=== PATIENT | male | born 1950 | race Caucasian/White ===

== ENCOUNTER 2023-08-16 06:17 | Inpatient (IN) | payer OTHER, MEDICARE, SELFPAY ==
--- NOTE | 2023-07-19 08:53 | CM ---
Patient is scheduled for L hip TKR on 09/12/22. Spoke with patient prior to surgery via telephone. Introduced role of Orthopedic Navigator. Patient reports that he lives with his and two young children (ages 5 and 10) in a two story home. There
are three steps to enter and a flight of steps to the second floor. He currently functions independently and uses a cane. He has no other DME and has never had VN services. PCP is Jenni Duenas.
Discussed orthopedic program and post surgical plans. Reviewed anticipated length of stay and that goal is for him to return home at discharge. Also reviewed outpatient PT. Patient is in agreement with tentative plan and will go directly to
outpatient PT at [facility]. He will have support from his and children's ocean lifeguard specialist when he goes home.
Patient will complete online education.
Plan: Orthopedic Navigator will remain available to assist with the care of patient and will reassess discharge needs after surgery.
[2023-07-27 08:30] VITALS: BMI 26.9
[2023-07-27 08:55] LABS: Hematocrit 46.2 % (39.0-52.0); Hemoglobin 15.3 g/dL (13.0-18.0); Mean Corp Hgb Conc. 33.1 g/dL (33.0-37.0); Mean Corpuscular Hgb 26.7 pg (27.0-31.0); Mean Corpuscular Volume 80.6 fL (80.0-94.0); Mean Platelet Volume 9.2 fL (7.4-10.4); Platelet Count 219 10^3/uL (130-400); Red Blood Cell Count 5.73 10^6/uL (4.70-6.10); Red Cell Dist. Width 15.9 % (11.5-14.5); White Blood Cell Count 6.3 10^3/uL (4.8-10.8)
[2023-07-27 09:08] LABS: ALT (SGPT) 26 U/L (0-50); AST (SGOT) 32 U/L (17-59); Alkaline Phosphatase 63 U/L (38-126); Blood Urea Nitrogen 19 mg/dl (9-20); Calcium 9.3 mg/dl (8.4-10.2); Carbon Dioxide 31 mmol/L (22-30); Chloride 101 mmol/L (98-107); Estimated Creatinine Clearance 72 ml/min; Glucose 67 mg/dl (70-99); Potassium 3.7 mmol/L (3.5-5.1); Sodium 134 mmol/L (135-145); Total Bilirubin 1.1 mg/dl (0.2-1.3); Total Protein 6.5 g/dl (6.3-8.2); eGFR > 60.00
[2023-07-27 10:37] LABS: Glycohemoglobin (HgbA1c) 5.5 % (4.0-5.6)
--- NOTE | 2023-07-27 16:17 | PTCARENOTE ---
Abnormal EKG, reviewed by Dr. Noble, no further actions requested.
[2023-07-27 16:20] VITALS: BMI 26.9
--- NOTE | 2023-07-31 12:44 | CM ---
Patient is scheduled for L hip TKR on 08/16/23. Spoke with patient prior to surgery via telephone. Introduced role of Orthopedic Navigator. Patient reports that he lives with his and two young children (ages 5 and 10) in a two story home. There
are three steps to enter and a flight of steps to the second floor. He currently functions independently and uses a cane. He has no other DME and has never had VN services. PCP is Jenni Duenas.
Discussed orthopedic program and post surgical plans. Reviewed anticipated length of stay and that goal is for him to return home at discharge. Also reviewed outpatient PT. Patient is in agreement with tentative plan and will go directly to
outpatient PT at [facility]. He will have support from his and children's engineering specialist when he goes home.
Patient will complete online education.
Plan: Orthopedic Navigator will remain available to assist with the care of patient and will reassess discharge needs after surgery.
[2023-08-16] VITALS (16 sets, daily range): BP systolic 112–129; BP diastolic 60–80
[2023-08-16 08:45] LABS: Glucose - Point of Care 71 mg/dl (70-99)
[2023-08-16] MEDS: NORMOSOL-R 1000 IV ×2 (08:45→14:00)
[2023-08-16] MEDS: CELEBREX 200 MG PO (08:59)
[2023-08-16] MEDS: TYLENOL 650 MG PO ×3 (09:00→19:35)
[2023-08-16 10:53] LABS: Glucose - Point of Care 98 mg/dl (70-99)
[2023-08-16 13:15] LABS: Glucose - Point of Care 102 mg/dl (70-99)
[2023-08-16] MEDS: ROXICODONE 5 MG PO (14:00)
--- NOTE | 2023-08-16 15:10 | W.PN.ORTHO ---
Today's Communication / Plan
-
D/c when clinically stable.
Assessment
.
Distal Motor Intact: Yes
Dressing:
Clean, dry and intact.
Assessment:
L hip OA s/p Conversion to L JULIANE w/ Dr Reid 08/16/23
- Left slipped capital femoral epiphysis, status post childhood correction with pinning
DVT prophylaxis - ASA, b/l venous foot pumps
HTN - + parameters - monitor BP
Asthma, mild and intermittent, and SHANTANU per sleep study 02/2023; no current CPAP or BiPAP - monitor O2
- IS
- Add supplemental O2 HS
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
BPH with LUTS, status post PlasmaButton vaporization, and h/o post-surgical urinary retention - monitor voids
- Bladder scan and straight cath prn
- Started on Flomax HS 3 days pre-op; continue post-op x1 week
Hyperlipidemia
Atypical chest pain; nuclear stress test 2019 unremarkable
Remote rectal bleeding
Right renal cyst
Vertigo
Kalia's thyroiditis
Basal cell carcinoma, left shoulder, status post excision
PTSD
Depression
Anxiety
Insomnia
Mild hyponatremia.
COVID-2021, without residual deficits
Remote history of tobacco abuse
Remote history of substance abuse
Plan
.
Surgery / Date: Conversion to L JULIANE w/ Dr Reid 08/16/23
DVT Prophylaxis: Aspirin
Activity:
Out of bed.
PT/OT
Discharge Plan: Home w/ Outpatient PT
Subjective
.
.:
Patient resting comfortably in PACU.
L hip pain currently well tolerated.
Denies any new significant complaints.
Vital Signs and Labs
.
Vital Signs and Labs:
Lab Results
07/27/23 07:01
07/27/23 07:01
Temp Pulse Resp BP Pulse Ox
97.9 F 80 13 112/74 99
08/16/23 13:09 08/16/23 13:15 08/16/23 13:15 08/16/23 13:15 08/16/23 13:15
Physical Exam
-
HEENT: No pallor, cyanosis, or jaundice. Throat clear.
NECK: Supple. No JVD.
RESPIRATORY: Lungs clear to auscultation.
CVS: S1, S2 normal. RRR.�
ABDOMEN: Soft, non-tender. No distension.
EXTREMITIES: No calf pain with palpation/dorsiflexion. Calves soft.
HEEL BUFFER: AOx3. No focal deficits. appraisal analyst grossly intact
[2023-08-16] MEDS: GLUCOPHAGE 500 MG PO (16:34)
[2023-08-16] MEDS: VITAMIN D3 (cholecalciferol) 25 MCG PO (16:34)
[2023-08-16] MEDS: SYNTHROID 75 MCG PO (16:34)
[2023-08-16] MEDS: VITAMIN C 500 MG PO (16:34)
[2023-08-16] MEDS: ORETIC 12.5 MG PO (16:35)
[2023-08-16] MEDS: DIOVAN 160 MG PO (16:35)
[2023-08-16] MEDS: ASPIRIN 325 MG PO (17:15)
[2023-08-16] MEDS: ANCEF 5 IV (19:34)
[2023-08-16] MEDS: DECADRON 4 MG PO (19:35)
[2023-08-16] MEDS: COLACE 100 MG PO (19:35)
[2023-08-16] MEDS: BACTROBAN 2% OINTMENT 1 APPLIC NASAL (19:35)
[2023-08-16] MEDS: SENOKOT 17.1999999999999993 MG PO (19:35)
[2023-08-16] MEDS: ROXICODONE 10 MG PO (19:36)
[2023-08-16] MEDS: FLOMAX 0.400000000000000022 MG PO (21:58)
[2023-08-16] MEDS: LEXAPRO 2.5 MG PO (21:58)
[2023-08-16] MEDS: DIOVAN PO (21:58)
[2023-08-16] MEDS: AMBIEN 2.5 MG PO (21:59)
[2023-08-17] VITALS (7 sets, daily range): BP systolic 107–136; BP diastolic 53–75; PULSE 70–79; O2SAT 97
[2023-08-17] MEDS: TYLENOL PO (01:00)
[2023-08-17] MEDS: ANCEF 5 IV (04:07)
[2023-08-17] MEDS: TYLENOL 650 MG PO ×5 (04:08→20:05)
[2023-08-17 05:14] LABS: Glucose - Point of Care 130 mg/dl (70-99)
[2023-08-17] MEDS: SYNTHROID 75 MCG PO (06:24)
[2023-08-17] MEDS: ROXICODONE 5 MG PO ×3 (06:29→20:05)
[2023-08-17] MEDS: COLACE 100 MG PO ×2 (08:23→20:05)
[2023-08-17] MEDS: DECADRON 4 MG PO ×2 (08:23→20:07)
[2023-08-17] MEDS: BACTROBAN 2% OINTMENT 1 APPLIC NASAL ×2 (08:24→20:07)
[2023-08-17] MEDS: SENOKOT 17.1999999999999993 MG PO ×2 (08:24→20:05)
[2023-08-17] MEDS: ASPIRIN 325 MG PO (08:24)
[2023-08-17] MEDS: GLUCOPHAGE 500 MG PO ×2 (08:24→16:15)
[2023-08-17] MEDS: VITAMIN C 500 MG PO (08:25)
[2023-08-17] MEDS: DIOVAN PO ×2 (08:25→20:04)
[2023-08-17] MEDS: MOBIC 15 MG PO (08:25)
[2023-08-17] MEDS: VITAMIN D3 (cholecalciferol) 25 MCG PO (08:25)
[2023-08-17] MEDS: ORETIC PO (08:26)
--- NOTE | 2023-08-17 08:59 | CM ---
Addendum entered by JOVANY Moreno 08/17/23 14:10:
Met with patient after therapy sessions. Patient not stable for discharge. Switched PT eval at to Monday08/21/23. Updated new date in discharge tab.
Original Note:
Reviewed chart and held rounds with PT, OT and nursing. Patient admitted as planned for elective L Hip conversion. Met with patient at bedside. Confirmed information previously obtained for assessment. Also discussed discharge plans. The plan is
for patient to return home at discharge. He will have support from his when he goes home. Patient will go directly to outpatient PT and will go to . He has an appointment scheduled for Monday, 08/18. Reviewed need to schedule appointment with
surgeon in 4 -6 weeks.
Patient has a cane. Script obtained and provided to PT for rolling walker to be issued.
He will use [facility] pharmacy for discharge prescriptions.
--- NOTE | 2023-08-17 10:25 | W.PN.ORTHO ---
Today's Communication / Plan
-
Await PT recs. Work w/ OT again as able.
D/c possible for later today pending improvement w/ therapy sessions.
Assessment
.
Distal Motor Intact: Yes
Dressing:
Clean, dry and intact.
Assessment:
L hip OA s/p Conversion to L JULIANE w/ Dr Reid 08/16/23
- Left slipped capital femoral epiphysis, status post childhood correction with pinning
DVT prophylaxis - ASA, b/l venous foot pumps
Diminished LLE sensation and weak dorsiflexion of L foot - possibly related to residual spinal anesthesia, worsening of chronic peripheral neuropathy?
- AM OT session hindered by this (gait disturbance noted); however, could also be due to underlying anxiety as pt visibly shaking when talking about it (no shaking at rest). Will provide Xanax at request of patient.
- Continue to work w/ PT and OT as able
- Will add Gabapentin TID for neuropathic pain
- Monitor
HTN - + parameters - BPs stable
Asthma, mild and intermittent, and SHANTANU per sleep study 02/2023; no current CPAP or BiPAP - O2 stable on RA
- IS
- Added supplemental O2 HS
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
- Consider Lyrica if Gabapentin ineffective
BPH with LUTS, status post PlasmaButton vaporization, and h/o post-surgical urinary retention - voiding by POD 1
- Continue bladder scan and straight cath prn
- Started on Flomax HS 3 days pre-op; continue post-op x1 week
Hyperlipidemia
Atypical chest pain; nuclear stress test 2019 unremarkable
Remote rectal bleeding
Right renal cyst
Vertigo
Kalia's thyroiditis
Basal cell carcinoma, left shoulder, status post excision
PTSD
Depression
Anxiety
Insomnia
Mild hyponatremia.
COVID-2021, without residual deficits
Remote history of tobacco abuse
Remote history of substance abuse
Plan
.
Surgery / Date: Conversion to L JULIANE w/ Dr Reid 08/16/23
DVT Prophylaxis: Aspirin
Activity:
Out of bed.
PT/OT
Discharge Plan: Home w/ Outpatient PT
Subjective
.
.:
Patient resting comfortably in his chair.
Reports diminished sensation in operative leg. Weak dorsiflexion noted.
L hip pain well controlled w/ current pain meds.
Eager for potential d/c.
Vital Signs and Labs
.
Vital Signs and Labs:
Lab Results
07/27/23 07:01
07/27/23 07:01
Temp Pulse Resp BP Pulse Ox
98.3 F 78 18 107/61 97
08/17/23 07:04 08/17/23 07:04 08/17/23 07:04 08/17/23 08:25 08/17/23 08:36
Non-invasive Hgb result: 13.1
Physical Exam
-
HEENT: No pallor, cyanosis, or jaundice. Throat clear.
NECK: Supple. No JVD.
RESPIRATORY: Lungs clear to auscultation.
CVS: S1, S2 normal. RRR.�
ABDOMEN: Soft, non-tender. No distension.
EXTREMITIES: Strength equal, no calf pain with palpation/dorsiflexion. Calves soft.
RADIOGRAPHER: AOx3. No focal deficits. finish off operator grossly intact
[2023-08-17] MEDS: XANAX 0.25 MG PO (10:39)
[2023-08-17] MEDS: NEURONTIN 200 MG PO ×3 (10:39→23:01)
[2023-08-17] MEDS: LEXAPRO 2.5 MG PO (23:02)
[2023-08-17] MEDS: FLOMAX 0.400000000000000022 MG PO (23:02)
[2023-08-18] MEDS: TYLENOL PO ×2 (01:22→05:10)
[2023-08-18] MEDS: ROXICODONE 5 MG PO ×2 (05:49→11:36)
[2023-08-18] MEDS: SYNTHROID 75 MCG PO (05:49)
--- NOTE | 2023-08-18 08:39 | CM ---
Addendum entered by Belgica Sales 08/18/23 11:05:
Patient did well in therapy. He has no concerns about discharge plans.
Original Note:
Reviewed chart and held rounds with PT, OT and nursing. Met with patient at bedside. Patient states that his L LE is better today. Discussed discharge plans. The plan continues to be for patient to return home at discharge. He will have support from
his when he goes home. Patient will go directly to outpatient PT and will go to . He has an appointment scheduled for Monday, 08/21.
Patient has a cane. He will need a rolling walker issued at discharge; script obtained and provided to PT.
He will use [facility] pharmacy for discharge prescriptions.
[2023-08-18 08:55] VITALS: BP 121/52
[2023-08-18] MEDS: COLACE 100 MG PO (09:06)
[2023-08-18] MEDS: SENOKOT 17.1999999999999993 MG PO (09:06)
[2023-08-18] MEDS: GLUCOPHAGE 500 MG PO (09:07)
[2023-08-18] MEDS: VITAMIN D3 (cholecalciferol) 25 MCG PO (09:07)
[2023-08-18] MEDS: NEURONTIN 200 MG PO (09:07)
[2023-08-18] MEDS: VITAMIN C 500 MG PO (09:07)
[2023-08-18] MEDS: MOBIC 15 MG PO (09:08)
[2023-08-18] MEDS: ASPIRIN 325 MG PO (09:08)
[2023-08-18] MEDS: DECADRON 4 MG PO (09:08)
[2023-08-18] MEDS: DIOVAN PO (09:09)
[2023-08-18] MEDS: ORETIC PO (09:09)
[2023-08-18] MEDS: TYLENOL 650 MG PO ×2 (09:10→13:30)
--- NOTE | 2023-08-18 09:56 | W.PN.ORTHO ---
Today's Communication / Plan
-
Await PT recs.
D/c later today if clinically stable.
Assessment
.
Distal Motor Intact: Yes
Dressing:
Clean, dry and intact.
Assessment:
L hip OA s/p Conversion to L JULIANE w/ Dr Reid 08/16/23
- Left slipped capital femoral epiphysis, status post childhood correction with pinning
DVT prophylaxis - ASA, b/l venous foot pumps
Diminished LLE sensation and weak dorsiflexion of L foot - possibly related to residual spinal anesthesia and worsening of chronic peripheral neuropathy
- Pt noting improvement ('sensation 60% back') in comparison to yesterday. Mobility notably improved since yesterday. Pt states he feels 'safer' than yesterday
- Continue Gabapentin TID for neuropathic pain
- Continue PT outpatient
- Advised patient to continue monitoring at home and to call [facility] should he have further concerns
HTN - + parameters - BPs stable
Asthma, mild and intermittent, and SHANTANU per sleep study 02/2023; no current CPAP or BiPAP - O2 stable on RA
- IS
- S/p supplemental O2 HS
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
- Consider Lyrica if Gabapentin ineffective
BPH with LUTS, status post PlasmaButton vaporization, and h/o post-surgical urinary retention - voiding by POD 1
- Continue bladder scan and straight cath prn
- Started on Flomax HS 3 days pre-op; continue post-op x1 week
Hyperlipidemia
Atypical chest pain; nuclear stress test 2019 unremarkable
Remote rectal bleeding
Right renal cyst
Vertigo
Kalia's thyroiditis
Basal cell carcinoma, left shoulder, status post excision
PTSD
Depression
Anxiety
Insomnia
Mild hyponatremia.
COVID-2021, without residual deficits
Remote history of tobacco abuse
Remote history of substance abuse
Plan
.
Surgery / Date: Conversion to L JULIANE w/ Dr Reid 08/16/23
DVT Prophylaxis: Aspirin
Activity:
Out of bed.
PT/OT
Discharge Plan: Home w/ Outpatient PT
Subjective
.
.:
Patient resting comfortably in his chair this morning.
LLE sensation still diminished but improving since yesterday. Was able to complete OT session today.
Denies any other new complaints.
Eager for potential d/c today.
Vital Signs and Labs
.
Vital Signs and Labs:
Lab Results
07/27/23 07:01
07/27/23 07:01
Temp Pulse Resp BP Pulse Ox
97.7 F 67 16 121/52 96
08/18/23 08:55 08/18/23 09:09 08/18/23 08:55 08/18/23 09:09 08/18/23 08:55
Non-invasive Hgb result: 13.8
Physical Exam
-
HEENT: No pallor, cyanosis, or jaundice. Throat clear.
NECK: Supple. No JVD.
RESPIRATORY: Lungs clear to auscultation.
CVS: S1, S2 normal. RRR.
ABDOMEN: Soft, non-tender. No distension.
EXTREMITIES: Strength equal, no calf pain with palpation/dorsiflexion. Calves soft.
UNIVERSITY TUTOR: AOx3. No focal deficits. curriculum supervisor grossly intact
[2023-08-18 11:02] VITALS: BP 112/70; PULSE 66
--- NOTE | 2023-08-18 11:05 | W.DS.TRANS ---
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
-
Discharge Instructions:
Sleep Apnea Risk Intermediate
Discharge Diagnosis/Procedures L hip OA s/p Conversion to L JULIANE w/ Dr Reid 2
Diet Other diet
Additional Diets Diabetic carb controlled x1 week for wound
healing/infection prevention; then resume
regular diet.
Activity As tolerated,With Walker
Driving Restrictions Not until seen by your Dr
Bathing Restrictions OK to Shower
Other Services PT
Wound Care Dressing to be removed 1 week post-surgery.
Stop these medications: Tramadol while on Oxycodone for post-surgical
pain.
Instructions:
Stand-Alone Forms: Total Hip/Knee Replacement D/C
Changes to Home Medications: Yes
Discharge Medications:
DC Medications w/original date entered in [facility]
ascorbic acid (vitamin C) 500 mg tablet (Vitamin C) 500 mg PO DAILY Supplement 07/25/23
benfotiamine 150 mg capsule 300 mg PO DAILY 07/25/23
cholecalciferol (vitamin D3) 25 mcg (1,000 unit) tablet (Vitamin D3) 25 mcg PO DAILY Supplement 07/25/23
coenzyme Q10 100 mg capsule (Co Q-10) 100 mg PO DAILY Supplement 07/25/23
escitalopram oxalate 5 mg tablet (Lexapro) 2.5 mg PO HS Depression 07/25/23
icosapent ethyl 1 gram capsule (Vascepa) 2 g PO BID High Cholesterol 07/25/23
levothyroxine 75 mcg tablet 75 mcg PO DAILY Thyroid 07/25/23
mupirocin 2 % topical ointment 1 applic intranasal BID #1 tube 07/27/23
tamsulosin 0.4 mg capsule (Flomax) 0.4 mg PO HS #10 caps 07/27/23
aspirin 325 mg tablet 325 mg PO DAILY #30 tabs 08/17/23
dexamethasone 4 mg tablet 4 mg PO BID #5 tabs 08/17/23
docusate sodium 100 mg capsule 100 mg PO BID #30 caps 08/17/23
famotidine 20 mg tablet (Pepcid) 20 mg PO HS #30 tabs 08/17/23
gabapentin 100 mg capsule 200 mg PO TID #30 caps 08/17/23
hydrochlorothiazide 12.5 mg capsule 12.5 mg PO DAILY Blood Pressure #0 caps 08/17/23
meloxicam 15 mg tablet 15 mg PO DAILY #30 tabs 08/17/23
metformin 500 mg tablet 500 mg PO BID prediabetes #0 tabs 08/17/23
oxycodone 5 mg tablet 5 - 10 mg PO Q4H PRN moderate-severe pain #30 tabs 08/17/23
prochlorperazine maleate 5 mg tablet 5 mg PO Q8H PRN nausea and vomiting #30 tabs 08/17/23
sennosides 8.6 mg tablet (Senna Lax) 17.2 mg PO BID #30 tabs 08/17/23
valsartan 160 mg tablet 160 mg PO BID Blood Pressure #0 tabs 08/17/23
acetaminophen 500 mg tablet (Tylenol Extra Strength) 1,000 mg PO Q6H #30 tabs 08/18/23
alprazolam 0.25 mg tablet 0.125 mg PO HS PRN Sleep #10 tabs 08/18/23
polyethylene glycol 3350 17 gram oral powder packet (Miralax) 17 g PO DAILY PRN constipation #14 ea 08/18/23
zolpidem 5 mg tablet 2.5 mg PO HS PRN insomnia #10 tabs 08/18/23
Home Medication Changes
tamsulosin 0.4 mg capsule (Flomax) 0.4 mg PO HS #10 caps 07/27/23
aspirin 325 mg tablet 325 mg PO DAILY #30 tabs 08/17/23
dexamethasone 4 mg tablet 4 mg PO BID #5 tabs 08/17/23
docusate sodium 100 mg capsule 100 mg PO BID #30 caps 08/17/23
famotidine 20 mg tablet (Pepcid) 20 mg PO HS #30 tabs 08/17/23
gabapentin 100 mg capsule 200 mg PO TID #30 caps 08/17/23
meloxicam 15 mg tablet 15 mg PO DAILY #30 tabs 08/17/23
oxycodone 5 mg tablet 5 - 10 mg PO Q4H PRN moderate-severe pain #30 tabs 08/17/23
prochlorperazine maleate 5 mg tablet 5 mg PO Q8H PRN nausea and vomiting #30 tabs 08/17/23
sennosides 8.6 mg tablet (Senna Lax) 17.2 mg PO BID #30 tabs 08/17/23
acetaminophen 500 mg tablet (Tylenol Extra Strength) 1,000 mg PO Q6H #30 tabs 08/18/23
alprazolam 0.25 mg tablet 0.125 mg PO HS PRN Sleep #10 tabs 08/18/23
polyethylene glycol 3350 17 gram oral powder packet (Miralax) 17 g PO DAILY PRN constipation #14 ea 08/18/23
zolpidem 5 mg tablet 2.5 mg PO HS PRN insomnia #10 tabs 08/18/23
Pending Results: No
== END 2023-08-18 13:50 | disposition home or self-care (01) | DRG 467 ==
LOC: 2 SOUTH 06:17
PROVIDERS: ADMITTING PHYSICIAN Orthopaedic Surgery; FAMILY PHYSICIAN Family Medicine; REFERRING PHYSICIAN Physician Assistant
PROC: 0SRB04Z Replacement of Left Hip Joint with Ceramic on Polyethylene Synthetic Substitute, Open Approach (ICD-10-PCS; 2023-08-16)
PROC: 0SPB0JZ Removal of Synthetic Substitute from Left Hip Joint, Open Approach (ICD-10-PCS; 2023-08-16)
PROC: 5A0935A Assistance with Respiratory Ventilation, Less than 24 Consecutive Hours, High Flow/Velocity Cannula (ICD-10-PCS; 2023-08-16)
DX: M16.12 Unilateral primary osteoarthritis, left hip (principal); E87.1 Hypo-osmolality and hyponatremia; I10 Essential (primary) hypertension; E78.5 Hyperlipidemia, unspecified; J45.909 Unspecified asthma, uncomplicated; G47.33 Obstructive sleep apnea (adult) (pediatric); N28.1 Cyst of kidney, acquired; G62.9 Polyneuropathy, unspecified; E06.3 Autoimmune thyroiditis; N40.1 Benign prostatic hyperplasia with lower urinary tract symptoms; F43.10 Post-traumatic stress disorder, unspecified; F32.A Depression, unspecified; G47.00 Insomnia, unspecified; R33.9 Retention of urine, unspecified; F19.11 Other psychoactive substance abuse, in remission; Z86.16 Personal history of COVID-19; Z87.891 Personal history of nicotine dependence; Z85.828 Personal history of other malignant neoplasm of skin; Z79.890 Hormone replacement therapy; Z79.1 Long term (current) use of non-steroidal anti-inflammatories (NSAID); Z79.84 Long term (current) use of oral hypoglycemic drugs; Z88.2 Allergy status to sulfonamides
CPT/HCPCS: 36415; 73502; 80053; 82962; 83036; 85027; 87070; 93005; 97110; 97116; 97162; 97167; 97530; 97535; C1776

== ENCOUNTER 2023-09-04 09:58 | Outpatient (RCR) | payer OTHER, SELFPAY | END 2023-09-04 23:59 | disposition home or self-care (01) | LOC: RPT 09:58 | PROVIDERS: ATTENDING PHYSICIAN Orthopaedic Surgery; FAMILY PHYSICIAN Family Medicine | DX: Z47.1 Aftercare following joint replacement surgery (principal); Z96.642 Presence of left artificial hip joint; Z73.6 Limitation of activities due to disability | CPT/HCPCS: 97010; 97110; 97112; 97140; 97162; 97530 ==

== ENCOUNTER → 2023-09-07 13:43 | Outpatient (REF) | payer OTHER, SELFPAY | LOC: RAD 13:43 | PROVIDERS: ATTENDING PHYSICIAN Physician Assistant Medical; FAMILY PHYSICIAN Family Medicine | DX: M79.662 Pain in left lower leg (principal) | CPT/HCPCS: 93971 ==

== ENCOUNTER 2023-09-11 09:55 | Outpatient (RCR) | payer OTHER, SELFPAY | END 2023-09-11 23:59 | disposition home or self-care (01) | LOC: RPT 09:55 | PROVIDERS: ATTENDING PHYSICIAN Orthopaedic Surgery; FAMILY PHYSICIAN Family Medicine | DX: Z47.1 Aftercare following joint replacement surgery (principal); Z96.642 Presence of left artificial hip joint; Z73.6 Limitation of activities due to disability | CPT/HCPCS: 97010; 97110 ==

== ENCOUNTER 2023-12-05 15:56 | Outpatient (RCR) | payer OTHER, SELFPAY | END 2023-12-05 23:59 | disposition home or self-care (01) | LOC: RPT 15:56 | PROVIDERS: ATTENDING PHYSICIAN Orthopaedic Surgery; FAMILY PHYSICIAN Family Medicine | DX: Z47.1 Aftercare following joint replacement surgery (principal); Z73.6 Limitation of activities due to disability | CPT/HCPCS: 97010; 97110; 97164; 97530 ==

== ENCOUNTER 2024-01-01 14:19 | Outpatient (RCR) | payer OTHER, SELFPAY | END 2024-01-01 23:59 | disposition home or self-care (01) | LOC: RPT 14:19 | PROVIDERS: ATTENDING PHYSICIAN Orthopaedic Surgery; FAMILY PHYSICIAN Family Medicine | DX: Z47.1 Aftercare following joint replacement surgery (principal); R26.89 Other abnormalities of gait and mobility; M25.552 Pain in left hip; Z96.642 Presence of left artificial hip joint; Z73.6 Limitation of activities due to disability | CPT/HCPCS: 97010; 97110; 97530 ==

== ENCOUNTER 2024-02-07 08:01 | Outpatient (RCR) | payer OTHER, SELFPAY | END 2024-02-07 23:59 | disposition home or self-care (01) | LOC: RPT 08:01 | PROVIDERS: ATTENDING PHYSICIAN Orthopaedic Surgery; FAMILY PHYSICIAN Family Medicine | DX: Z47.1 Aftercare following joint replacement surgery (principal); Z73.6 Limitation of activities due to disability; R26.89 Other abnormalities of gait and mobility; M25.552 Pain in left hip; Z96.642 Presence of left artificial hip joint | CPT/HCPCS: 97010; 97110; 97112; 97530 ==

== ENCOUNTER → 2024-02-20 06:55 | Outpatient (REF) | payer OTHER, SELFPAY | LOC: EMG 06:55 | PROVIDERS: ATTENDING PHYSICIAN Student in an Organized Health Care Education/Training Program; FAMILY PHYSICIAN Family Medicine | DX: R20.0 Anesthesia of skin (principal) | CPT/HCPCS: 95886; 95911 ==

== ENCOUNTER 2024-02-28 06:38 | Outpatient (RCR) | payer OTHER, SELFPAY | END 2024-02-28 09:06 | disposition home or self-care (01) | LOC: RPT 06:38 | PROVIDERS: ATTENDING PHYSICIAN Orthopaedic Surgery; FAMILY PHYSICIAN Family Medicine | DX: Z47.1 Aftercare following joint replacement surgery (principal); Z73.6 Limitation of activities due to disability; R26.89 Other abnormalities of gait and mobility; M25.552 Pain in left hip; Z96.642 Presence of left artificial hip joint | CPT/HCPCS: 97010; 97110; 97530 ==

== ENCOUNTER → 2024-04-08 08:17 | Outpatient (REF) | payer OTHER, SELFPAY | LOC: RCS 08:17 | PROVIDERS: ATTENDING PHYSICIAN Student in an Organized Health Care Education/Training Program; FAMILY PHYSICIAN Family Medicine; REFERRING PHYSICIAN Orthopaedic Surgery | DX: Z01.818 Encounter for other preprocedural examination (principal) | CPT/HCPCS: 93005 ==

== ENCOUNTER → 2025-04-07 08:38 | Outpatient (REF) | payer OTHER, SELFPAY | LOC: HWRAD 08:38 | PROVIDERS: ATTENDING PHYSICIAN Student in an Organized Health Care Education/Training Program; FAMILY PHYSICIAN Internal Medicine | DX: M79.672 Pain in left foot (principal) | CPT/HCPCS: 73700 ==

== ENCOUNTER → 2025-04-16 07:58 | Outpatient (REF) | payer OTHER, SELFPAY | LOC: RAD 07:58 | PROVIDERS: ATTENDING PHYSICIAN Student in an Organized Health Care Education/Training Program; FAMILY PHYSICIAN Internal Medicine | DX: M79.672 Pain in left foot (principal); I73.9 Peripheral vascular disease, unspecified | CPT/HCPCS: 93923; 93925 ==